=== PATIENT | female | born 1995 | race Caucasian/White ===

== ENCOUNTER 2016-05-25 12:07 | Emergency (ER) | payer OTHER ==
[2016-05-25 12:13] VITALS: TEMP 100.1; BMI 25.2
[2016-05-25] MEDS ORDERED: ONDANSETRON HCL 4 MG ODT TAB PO ONE (12:24)
[2016-05-25] MEDS ORDERED: ACETAMINOPHEN WITH CODEINE 5 ML UDC PO ONE (12:24)
--- NOTE | 2016-05-25 12:58 | EDPRACDOC ---
- General Information Chief Complaint: Flu-Like Symptoms Stated Complaint: BODY ACHES Time Seen by Provider: 05/25/16 12:19 Information Source: Patient Mode of Arrival: Car Home Medications: Home Medications Acetaminophen with Codeine [TYLENOL WITH CODEINE; [employer] with Codeine] 5 ml PO Q4-6H PRN #120 ml 05/25/16 Buspirone HCl [Buspar] 20 mg PO DAILY 05/25/16 Ibuprofen 600 mg PO TID #20 tablet 05/25/16 Ondansetron HCl [Zofran] 4 mg PO Q6H PRN #20 tab 05/25/16 Oseltamivir Phosphate [Tamiflu] 75 mg PO BID #10 capsule 05/25/16 Quetiapine Fumarate [Seroquel] 50 mg PO DAILY 05/25/16 Allergies/Adverse Reactions: Allergies Allergy/AdvReac Type Severity Reaction Status Date / Time promethazine [From Phenergan] Allergy Rash-Genera Verified 05/25/16 12:16 lized - History of Present Illness Onset: this morning HPI: PT PRESENTS TODAY WITH GENERALIZED MALAISE, FEVER AND NAUSEA SINCE THIS MORNING. PT STATES TOOK IBUPROFEN WITH ONLY MINIMAL RELIEF. STATES SHE IS HAVING PAIN ALONG HER RIGHT CHESTWALL/BACK. NO PMH/MEDS/SBI. NO APPARENT DISTRESS. Treated Infection: None Max Temperature: 101.0 F Improves With: Reports: Ibuprofen Symptoms: Reports: Chills, Myalgia, Nausea ED Past Medical History - History Reviewed Yes Nurses notes reviewed and agree except as marked - Patient Medical History Neurological History: Reports: Cerebrovascular Accident (DAD) Cardiac History: Reports: Hypertension (MATERNAL GRANDPARENT) Respiratory History: Reports: Asthma (SISTER, DAD) Psychological History: Reports: Depression, Anxiety, Bipolar Disorder (FATHER). Denies: Substance Use Disorder Surgical History: Reports: Appendectomy, Cholecystectomy. Denies: Hysterectomy - Family Medical History Reports: Hypertension (GRANDPARENT), Cancer (MATERNAL/PATERNAL GRANDPARENTS), Stroke (DAD) - Social Medical History Smoking Status: Former smoker Social History: Denies: Other Substance Use EDM Review of Systems - Review of Systems ROS Negative Except as Marked: Yes All systems reviewed and were negative except as marked Constitutional: Chills, Fever, Fatigue Eyes: No Symptoms Reported Ears: No Symptoms Reported Throat: No Symptoms Reported Nose: No Symptoms Reported Respiratory: No Symptoms Reported Cardiovascular: No Symptoms Reported Gastrointestinal: Nausea Genitourinary: No Symptoms Reported Neurological: No Symptoms Reported Musculoskeletal: No Symptoms Reported Integumentary: No Symptoms Reported - Physical Exam Constitutional: Alert (Awake), No apparent distress Oriented to: Time, Person, Place Last recorded Vital Signs: Last Vital Signs Temp 100.1 F 05/25/16 12:13 Pulse 119 05/25/16 12:13 Resp 18 05/25/16 12:16 BP 141/67 05/25/16 12:13 Pulse Ox 96 05/25/16 12:13 Oxygen Pulse Oxygen Saturation 96 O2 Device Room Air Oxygen Flow Rate Fraction of Inspired Oxygen ( FIO2) - HEENT Head: Normal Eye Exam: Normal Oropharynx: Normal Tympanic Membrane: Normal ENT EAC: Normal Nose: No Symptoms Reported Neck: Normal, Denies Pain, Midline - Respiratory/Cardiovascular Respiratory: Normal - CTA Cardiovascular: Tachycardia - GI Palpation: Normal Tenderness: Non tender - Musculoskeletal Back: Normal Extremities: Normal - Integumentary Skin: Hot Lymphatics: Normal - Neurologic Cerebellar: Normal Mood Description: Normal Thought: Coherent Perception: Normal - Results Microbiology 05/25/16 12:26 Influenza Type A Antigen Screen - Final Nasal Washing/Aspirate Or Swab NEGATIVE Please note: A NEGATIVE result does not exclude an influenza virus infection. It is a presumptive result and, if required, confirmation should be done using either a virus culture or an FDA-cleared influenza A&B molecular assay. ("NORMAL" value = "NEGATIVE".) Influenza Type B Antigen Screen - Final NEGATIVE Please note: A NEGATIVE result does not exclude an influenza virus infection. It is a presumptive result and, if required, confirmation should be done using either a virus culture or an FDA-cleared influenza A&B molecular assay. ("NORMAL" value = "NEGATIVE".) Decision Time to Discharge: 13:23 - Departure Disposition: Home Condition: Good Final Diagnosis: Viral syndrome Instructions: Influenza (ED) Education/Counseling Given To: Patient Education/Counseling Given Regarding: Diagnosis, Treatment, Follow Up Referrals: None,No Provider [Primary Care Provider] - One Week Prescriptions: New Acetaminophen with Codeine [TYLENOL WITH CODEINE; [employer] with Codeine] 5 ml PO Q4-6H PRN #120 ml PRN Reason: Pain Ibuprofen 600 mg PO TID #20 tablet Ondansetron HCl [Zofran] 4 mg PO Q6H PRN #20 tab PRN Reason: Nausea/Vomiting Oseltamivir Phosphate [Tamiflu] 75 mg PO BID #10 capsule No Action Buspirone HCl [Buspar] 20 mg PO DAILY Quetiapine Fumarate [Seroquel] 50 mg PO DAILY Additional Instructions: REST AND PLENTY OF FLUIDS. FOLLOW UP WITH PCP OR RETURN TO ED FOR ANY WORSE/ CONCERNING SYMPTOMS.
--- NOTE | 2016-05-25 13:19 | DIRPT ---
CLINICAL DATA: Patient with right-sided chest pain. Headache and fever. EXAM: CHEST 2 VIEW COMPARISON: Chest radiograph 10/11/2015 FINDINGS: Normal cardiac and mediastinal contours. No consolidative pulmonary opacities. No pleural effusion or pneumothorax. Regional skeleton is unremarkable. Cholecystectomy clips. IMPRESSION: No active cardiopulmonary disease. Electronically Signed By: Jose A Sarkar M.D. On: 05/25/2016 13:17
[2016-05-25 13:57] VITALS: BP 131/58; PULSE 118
== END 2016-05-25 13:33 | disposition home or self-care (01) ==
LOC: EDMC 12:07
DX: B34.9 Viral infection, unspecified (principal)
CPT/HCPCS: 71020; 87804; 99283; J3490